=== PATIENT | female | born 1975 | race Caucasian/White ===

== ENCOUNTER 2018-06-11 13:14 | Outpatient (CLI) | payer OTHER ==
--- NOTE | 2018-06-11 14:32 | XRay Report ---
ROUTINE CHEST, TWO VIEWS: HISTORY: Positive PPD. The trachea, heart, mediastinal contour, lung alvarez and bony thorax are unremarkable. IMPRESSION: Unremarkable chest x-ray.
== END 2018-06-11 13:15 | disposition home or self-care (01) ==
LOC: XRAY 13:14
PROVIDERS: ATTEND Internal Medicine Infectious Disease
DX: R76.12 Nonspecific reaction to cell mediated immunity measurement of gamma interferon antigen response without active tuberculosis (principal)
CPT/HCPCS: 71046